=== PATIENT | female | born 1975 | race American Indian/Alaskan Native ===

== ENCOUNTER 2022-04-03 09:37 | Outpatient (CLI) | payer BC | END 2022-04-03 09:38 | disposition home or self-care (01) | LOC: LAB 09:37 | PROVIDERS: ATTEND Specialist | DX: G61.9 Inflammatory polyneuropathy, unspecified (principal); E11.42 Type 2 diabetes mellitus with diabetic polyneuropathy; 000.000 | CPT/HCPCS: 36415; 82607; 83921; 84443 ==